=== PATIENT | female | born 1990 | race Caucasian/White ===

== ENCOUNTER 2022-03-20 13:20 | Inpatient (IN) ==
[2022-03-20] MEDS ORDERED: OXYTOCIN 30 UNITS/500 ML BAG IV PRN ×3 (13:31→23:10)
[2022-03-20] MEDS ORDERED: ceFAZolin 2000MG 2,000 MG/15 ML SYR IV ONE (14:00)
[2022-03-20 14:25] LABS: Hemoglobin 11.8 g/dL (12.0-16.0); Mean Corpuscular Hemoglobin 30.6 pg (25-34); Mean Corpuscular Hgb Conc 34.7 g/dL (32-36); Mean Corpuscular Volume 88.1 fL (80-100); Mean Platelet Volume 10.8 fL (7.4-10.4); Platelet Count 230 K/uL (130-400); RDW Coefficient of Variation 13.2 % (11.5-14.5); Red Blood Count 3.86 M/uL (4.2-5.4); White Blood Count 11.03 K/uL (4.8-10.8)
[2022-03-20] MEDS: LACTATED RINGER'S 1,000 ML IV PRN ×2 (15:33→18:25)
--- NOTE | 2022-03-20 15:44 | History & Physical Report ---
Date of Service March 20, 2022 Assessment & Plan (1) Supervision of normal intrauterine in primigravida: Plan: Admit to L&D. EFM/toco. Labs. Pitocin. Discussed allergy history - has h/o rash as a child for Augmentin. She believes she took amoxicillin a long time ago and did ok, however does not remember exactly. I therefore recommended to her that we avoid penicillin products, given that we do not know if she has actually tolerated a penicillin family a ntibiotic in the past or not. Rx ancef. Admission and Anticipated Discharge Date Admission Date: March 20, 2022 History of Present Illness Chief Complaint: SROM Primary Care Provider: Lorraine Lockett, 31yo @ 38 12/25, presents after clear fluid rupture of membranes around 11:00-11:30 today. No vaginal bleeding. + movement. No reg ctx. Grossly ruptured on office exam. with +GBS, Rh negative. Allergies Allergy/AdvReac Type Severity Reaction Status Date / Time amoxicillin [From Augmentin] Allergy Mild rash Verified 03/20/22 12:33 clavulanic acid Allergy Mild rash Verified 03/20/22 12:33 [From Augmentin] Home Medications Medication Instructions Recorded Confirmed Type prenat.vits,monalisa,zcn-pxvu-mbaub 1 tab PO DAILY 08/11/21 03/20/22 History ferrous sulfate 325 mg (65 mg 325 mg PO Q OTHER DAY 01/21/22 03/20/22 History iron) tablet,delayed release famotidine 10 mg tablet (Pepcid AC) 10 mg PO DAILY 02/17/22 03/20/22 History Lactobacills gasseri-Bifidobac 1 cap PO DAILY 03/20/22 03/20/22 History bifidum,longum 1.5 billion cell capsule ([employer]) calcium carbonate 500 mg calcium 1,000 mg PO Q6HWA PRN 03/20/22 03/20/22 History (1,250 mg) chewable tablet Patient History Surgical History S/P wisdom tooth extraction Family History Uncle Colorectal cancer Aunt Breast cancer Father Diabetes Hypertension Dyslipidemia Prostate cancer Mother Ovarian cancer Social History (Updated 03/20/22 @ 13:38 by Meaghan Figueroa RN) Smoking Status: Never smoker Hx Alcohol Use: No Hx Substance Use: No Preferred Language: Nepalese Communication Ability: Effective Visual Impairment: No Limitations Hearing Ability: Normal Picture Enlarger Required: No Beliefs That Will Affect Care: None marital status: marital status details: Jai (31) [phone] Current Living Situation: Spouse Current Living Situation Comment: lives with spouse, no pets. 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 Feels Safe at Home: Yes Safety Concerns: Feels Safe At This Time Gender Identity: Female Review of Systems All systems reviewed & are unremarkable except as noted in HPI & below Physical Exam Physical Exam: FHT Cat 1 toco occasional SVE 3/90/-2, soft/right. EFW 7-8 Constitutional: WD/WN, vitals as above Respiratory: normal respiratory effort, lungs clear to auscultation no respiratory distress Cardiovascular: Rate/Rhythm: regular rate and regular rhythm Gastrointestinal (Abdomen): Inspection/Auscultation: abdomen normal to inspection Percussion/Palpation: abdomen soft; abdomen nontender Gravid. No s/s chorio or abruption. Skin: no rashes, warm and dry Psychiatric: A+Ox3, euthymic affect Coding Level of Care Code None Diagnoses Supervision of normal intrauterine in primigravida Z34.00
[2022-03-20] MEDS ORDERED: ePHEDrine sulfate 50 MG/ML AMP ONE (18:01)
[2022-03-20] MEDS ORDERED: SODIUM CHLORIDE 0.9% INJ 10 ML VIAL ONE (18:01)
[2022-03-20] MEDS ORDERED: fentaNYL citrate 100 MCG/2 ML VIAL ONE (18:01)
[2022-03-20] MEDS ORDERED: BUPIVACAINE 0.25% 30 ML VIAL ONE (18:02)
[2022-03-20] MEDS ORDERED: fentaNYL 2MCG/ML ROPIVACAINE 1.25MG/ML 100 ML BAG EPI ONE (18:02)
[2022-03-20] MEDS ORDERED: PROMETHAZINE HCL 6.25 MG in SODIUM CHLORIDE 0.9% 50 ML IV PRN (18:21)
[2022-03-20] MEDS ORDERED: fentaNYL 2MCG/ML ROPIVACAINE 1.25MG/ML 100 ML BAG EPI PRN (18:21)
[2022-03-20] MEDS ORDERED: NALBUPHINE HCL INJ 10 MG/ML AMP IV PRN (18:21)
[2022-03-20] MEDS ORDERED: ePHEDrine sulfate 50 MG/ML AMP IV PRN (18:21)
[2022-03-20] MEDS ORDERED: NALOXONE HCL 0.4 MG/1 ML VIAL/CARP IV PRN (18:21)
[2022-03-20] MEDS ORDERED: ONDANSETRON INJ 2 MG/ML 2 ML VIAL IV PRN (18:21)
[2022-03-20] MEDS ORDERED: diphenhydrAMINE 50 MG/ML VIAL IV PRN (18:21)
[2022-03-20] MEDS ORDERED: NALOXONE HCL 1 MG in SODIUM CHLORIDE 0.9% 1000ML 1,000 ML IV PRN (18:21)
--- NOTE | 2022-03-20 18:26 | Anesthesiology Consultation ---
Date of Service March 20, 2022 Assessment & Plan (1) Encounter for pre-operative examination: Chart Review Chart Review: Patient NOT seen in Pre Admission Testing and Acceptable Risk for Labor Epidural Consults Requested none History Height/Weight Height: 5 ft 1 in Weight: 71.668 kg Allergies Allergy/AdvReac Type Severity Reaction Status Date / Time amoxicillin [From Augmentin] Allergy Mild rash Verified 03/20/22 12:33 clavulanic acid Allergy Mild rash Verified 03/20/22 12:33 [From Augmentin] Medications Home Medications Medication Instructions Recorded Confirmed Last Taken prenat.vits,monalsia,ios-lhyn-zzvpb 1 tab PO DAILY 08/11/21 03/20/22 03/20/22 07:00 ferrous sulfate 325 mg (65 mg 325 mg PO Q OTHER DAY 01/21/22 03/20/22 03/18/22 20:00 iron) tablet,delayed release famotidine 10 mg tablet (Pepcid AC) 10 mg PO DAILY 02/17/22 03/20/22 03/20/22 07:00 Lactobacills gasseri-Bifidobac 1 cap PO DAILY 03/20/22 03/20/22 03/20/22 07:00 bifidum,longum 1.5 billion cell capsule ([employer]) calcium carbonate 500 mg calcium 1,000 mg PO Q6HWA PRN 03/20/22 03/20/22 03/18/22 22:00 (1,250 mg) chewable tablet calcium carbonate 600 mg-vitamin 1 tab PO DAILY 03/20/22 03/20/22 03/20/22 07:00 D3 10 mcg (400 unit) tablet (Calcium 600 + D(3)) Active Medications Generic Name Dose Route Start Last Admin Trade Name Freq PRN Reason Stop Dose Admin Oxytocin 30 units in 500 mls @ 7 mls/hr 03/20/22 13:36 03/20/22 17:30 Pitocin IV 03/22/22 13:35 0.42 units/hr .Q24H PRN 7 mls/hr Labor Induction/Augmentation Titration Protocol 0.42 UNITS/HR Lactated Ringer's 1,000 mls @ 125 mls/hr 03/20/22 13:31 03/20/22 18:25 Lr IV 03/22/22 13:30 999 mls/hr .Q8H PRN Administration L&D Protocol Protocol Past Family History Family History Uncle Colorectal cancer Aunt Breast cancer Father Diabetes Hypertension Dyslipidemia Prostate cancer Mother Ovarian cancer Past Surgical History Surgical History S/P wisdom tooth extraction Past Anesthesia History No Hx of Anesthesia Complications and No Family Hx of Anesthesia Complications History of PONV No Hx of PONV and No Hx of Motion Sickness Social History Smoking Status: Never smoker Hx Alcohol Use: No Hx Substance Use: No substance use type: does not use Physical Exam Vital Signs Last Vital Signs Temp 37 C 03/20/22 16:44 Pulse 76 03/20/22 18:12 Resp 20 03/20/22 16:44 BP 125/89 03/20/22 18:12 Testing Laboratory Results 03/20/22 14:01
--- NOTE | 2022-03-20 19:47 | Labor Progress Brief Note ---
Date of Service March 20, 2022 Subjective Comfortable with epidural. FHT Cat 1 toco Q 2-3 min SVE 7/100/+1 Continue labor. Assessment & Plan Admission and Anticipated Discharge Date Admission Date: March 20, 2022 Results & Data ([facility]) Vital Signs (Past 12 Hours) Vital Signs Temp Pulse Resp BP Pulse Ox 03/20/22 19:41 84 99 03/20/22 19:40 82 116/63 03/20/22 19:36 84 100 03/20/22 19:31 92 H 99 03/20/22 19:26 89 100 03/20/22 19:23 83 116/61 03/20/22 19:21 73 100 03/20/22 19:16 77 99 03/20/22 19:11 99 H 99 03/20/22 19:08 79 118/67 03/20/22 19:06 84 99 03/20/22 19:03 77 116/67 03/20/22 19:01 94 H 99 03/20/22 18:56 73 99 03/20/22 18:53 79 117/66 03/20/22 18:51 83 123/72 99 03/20/22 18:49 89 126/76 03/20/22 18:47 81 118/77 03/20/22 18:46 84 99 03/20/22 18:45 85 126/72 03/20/22 18:43 84 134/83 03/20/22 18:41 85 151/86 H 99 03/20/22 18:38 79 128/73 03/20/22 18:36 84 99 03/20/22 18:31 94 H 99 03/20/22 18:12 76 125/89 03/20/22 17:58 73 154/66 H 03/20/22 17:57 76 145/78 H 03/20/22 17:42 81 156/80 H 03/20/22 17:27 75 139/86 03/20/22 17:12 77 125/78 03/20/22 16:56 77 116/78 03/20/22 16:44 37 C 20 03/20/22 16:41 78 128/79 03/20/22 16:26 78 130/78 Coding Level of Care Code None
[2022-03-20] MEDS ORDERED: LIDOCAINE 2%/EPINEPHRINE 1:200,000 20 ML SDV ONE (20:20)
[2022-03-20] MEDS ORDERED: ceFAZolin 1000MG 1,000 MG/7.5 ML SYR IV PRN (20:31)
--- NOTE | 2022-03-20 23:01 | Delivery Summary ---
Vaginal Delivery Summary Date of Service March 20, 2022 Vaginal Delivery Summary and 3rd Degree LAC Vaginal Delivery Summary: Pre-delivery diagnoses: 31yo @ 38 4/7, SROM, Rh negative, GBS+ Post-delivery diagnoses: same Procedure: spontaneous vaginal delivery, repair of 3rd degree perineal laceration Surgeon: Jasmin Rae DO Complications: none Findings: Viable female . Apgars: 9/9 . Weight pending, please see nursery records. Estimated blood loss: 300ml Description of delivery: The patient progressed to complete with epidural anesthesia. She then began to push. She spontaneously vaginally delivered a viable from the cephalic presentation. The head delivered in DEIRDRE position. The anterior and posterior shoulder delivered at once, followed by the body. The baby was placed on mother's abdomen and a spontaneous cry was heard. Delayed cord clamping was employed, and the cord was doubly clamped and cut. Cord blood was obtained. The placenta was delivered spontaneously intact with a 3-vessel cord. The uterus and vagina were swept of clots and debris. IV pitocin was given. The uterus became firm. The cervix, vagina, and perineum were inspected and a 3rd degree perineal laceration was noted and repaired. First, the anal sphincter muscle was identified and grasped with Allis clamps, then the fascial sheath was reapproximated with 4 [id number] sutures of 3-0 Chromic. The remaining laceration was repaired with 3-0 Vicryl in standard fashion. Excellent hemostasis was observed. The mother and baby are recovering in stable and good condition in the room. Sponge, needle and instrument counts were correct x 2. Jamsin Rae DO [facility] Vaginal Delivery Charge Vaginal Delivery Codes: 67412 global code for the antepartum, delivery, and post- Delivery Type Details: and 3rd Degree LAC
[2022-03-20] MEDS ORDERED: DIPHTHERIA/TETANUS/PERTUSSIS 0.5 ML SYR/VIAL IM ONE (23:10)
[2022-03-20] MEDS ORDERED: BENZOCAINE 20% AER SPR 82.5 GM CAN EXT PRN (23:10)
[2022-03-20] MEDS ORDERED: HYDROCORTISONE ACETATE 25 MG SUPP PR PRN (23:10)
[2022-03-20] MEDS ORDERED: oxyCODONE/ACETAMINOPHEN 5mg/325mg TAB PO PRN (23:10)
[2022-03-20] MEDS ORDERED: bisacodyL 10 MG SUPP PR PRN (23:10)
[2022-03-20] MEDS ORDERED: CALCIUM CARBONATE 500 MG CHEWABLE TAB PO PRN (23:15)
--- NOTE | 2022-03-21 00:31 | Anesthesia Procedure Note ---
Date of Service March 21, 2022 Anesthesia Post Epidural Note Vital Signs Vital Signs: Temp Pulse Resp BP Pulse Ox 37.2 C 85 18 137/68 97 03/20/22 20:38 03/21/22 00:23 03/20/22 22:55 03/21/22 00:23 03/20/22 22:56 Pain Intensity Abdomen: Pain Intensity: 0 Notes Mental Status: alert / awake / arousable and participated in evaluation Patient Amnestic to Procedure: No Nausea / Vomiting: adequately controlled Pain: adequately controlled Airway Patency, RR, SpO2: stable & adequate BP & HR: stable & adequate Hydration State: stable & adequate Neuraxial Anesthesia: was administered and sensory block is resolving Anesthetic Complications: no major complications apparent and Pt Satisfied with anesthetic care Epidural: Removed without complications and With tip intact
[2022-03-21] MEDS: IBUPROFEN 600 MG TAB PO PRN ×4 (02:55→20:03)
--- NOTE | 2022-03-21 06:50 | Obstetrical Progress Note ---
Date of Service March 21, 2022 Assessment & Plan (1) Encounter for care and examination after delivery: Plan: Patient is a 31-year-old a now G1, P1 female who delivered via normal spontaneous vaginal delivery at 38 and 4/7 weeks. -Continue routine care, keep today -GBS positive, treated with Ancef,A-, antibody negative, rubella immune -Patient requires RhoGAM as baby's blood type is A+ -Pain controlled with Tylenol and ibuprofen -Encouraged ambulation -Encourage breast-feeding -6-week follow-up with Dr. Rae Admission and Anticipated Discharge Date Admission Date: March 20, 2022 Supervising Physician Co-Signing Physician Notes Resident Physician Supervision Note: I was present with Dr. Flanagan during the history and exam. I discussed the case with the resident and agree with the findings and plan as documented in the note. Any exceptions or clarifications are listed here: PPD#1 doing well. Routine recovery. Documented By: Jasmin Rae, DO Subjective Patient is a 31-year-old a now G1, P1 female who delivered via normal spontaneous vaginal delivery at 38 and 4/7 weeks. was uncomplicated. Patient overall doing well. Patient pain is controlled at this time with ibuprofen and Tylenol but is a little crampy Patient was walking around the room upon my arrival. Patient urinating without difficulty. Eating and drinking without nausea or vomiting. Patient is breast-feeding without difficulty. Lochia moderate but improving. Patient otherwise denies fever, chills, chest pain, shortness of breath, UTI symptoms, or headache. Patient has no other complaints at this time. Patient aware she needs to receive RhoGAM. Review of Systems Review of Systems: All systems reviewed & are unremarkable except as noted in HPI & below Physical Exam Constitutional: WD/WN, vitals as above Eyes: + anicteric sclerae Neck: trachea midline, no thyromegaly Respiratory: normal respiratory effort, lungs clear to auscultation Cardiovascular: RRR, no murmur, no edema Gastrointestinal (Abdomen): normal bowel sounds, soft, nontender, no hepatosplenomegaly Skin: no rashes, warm and dry Neurologic: moves all extremities Psychiatric: A+Ox3, euthymic affect Genitourinary: Uterine fundus palpated at the level of the umbilicus, firm Results & Data ([facility]) Vital Signs (Past 12 Hours) Vital Signs Temp Pulse Pulse Resp BP BP Pulse Ox 03/21/22 03:15 36.6 C 72 16 120/75 03/21/22 00:40 36.7 C 20 03/21/22 00:38 106 H 124/69 03/21/22 00:23 85 137/68 03/21/22 00:10 100 H 18 123/79 03/20/22 23:53 96 H 120/68 03/20/22 23:40 18 03/20/22 23:38 96 H 114/61 03/20/22 23:25 20 03/20/22 23:23 110 H 133/83 03/20/22 23:10 20 03/20/22 23:08 102 H 118/57 L 03/20/22 22:56 97 H 97 03/20/22 22:55 18 03/20/22 22:53 100 H 123/62 03/20/22 22:51 97 H 97 03/20/22 22:46 100 H 97 03/20/22 22:41 97 H 97 03/20/22 22:40 20 03/20/22 22:38 107 H 127/67 03/20/22 22:36 104 H 97 03/20/22 22:31 110 H 97 03/20/22 22:26 112 H 97 03/20/22 22:21 121 H 97 03/20/22 22:16 173 H 98 03/20/22 22:11 131 H 98 03/20/22 22:10 139 H 93 03/20/22 22:09 127 H 139/83 03/20/22 22:06 123 H 99 03/20/22 22:01 110 H 99 03/20/22 22:00 20 03/20/22 21:56 128 H 99 03/20/22 21:55 141 H 133/71 03/20/22 21:51 154 H 100 03/20/22 21:46 111 H 99 03/20/22 21:41 108 H 99 03/20/22 21:40 100 H 132/88 03/20/22 21:36 86 99 03/20/22 21:31 90 99 03/20/22 21:30 20 03/20/22 21:26 84 100 03/20/22 21:23 86 141/80 H 03/20/22 21:21 88 99 03/20/22 21:16 85 99 03/20/22 21:11 93 H 99 03/20/22 21:08 95 H 131/85 03/20/22 21:06 97 H 100 03/20/22 21:01 87 99 03/20/22 20:56 96 H 100 03/20/22 20:54 83 140/70 03/20/22 20:51 78 99 03/20/22 20:46 83 100 03/20/22 20:41 98 H 98 03/20/22 20:38 37.2 C 81 20 128/70 03/20/22 20:36 81 98 03/20/22 20:31 83 100 03/20/22 20:26 79 100 03/20/22 20:21 95 H 98 03/20/22 20:16 88 99 03/20/22 20:11 86 100 03/20/22 20:09 93 H 117/71 03/20/22 20:06 91 H 100 03/20/22 20:01 97 H 100 03/20/22 19:56 101 H 100 03/20/22 19:54 94 H 110/65 03/20/22 19:51 95 H 98 03/20/22 19:46 85 100 03/20/22 19:41 84 99 03/20/22 19:40 82 116/63 03/20/22 19:36 84 100 03/20/22 19:31 92 H 99 03/20/22 19:26 89 100 03/20/22 19:23 83 116/61 03/20/22 19:21 73 100 03/20/22 19:16 77 99 03/20/22 19:11 99 H 99 03/20/22 19:08 79 118/67 03/20/22 19:06 84 99 03/20/22 19:03 77 116/67 03/20/22 19:01 94 H 99 03/20/22 18:56 73 99 03/20/22 18:53 79 117/66 03/20/22 18:51 83 123/72 99 03/20/22 18:49 89 126/76 03/20/22 18:47 81 118/77 03/20/22 18:46 84 99 03/20/22 18:45 85 126/72 03/20/22 18:43 84 134/83 07/01/22 18:41 85 151/86 H 99 03/20/22 18:38 79 128/73 03/20/22 18:36 84 99 03/20/22 18:31 94 H 99 03/20/22 18:12 76 125/89 03/20/22 17:58 73 154/66 H 03/20/22 17:57 76 145/78 H 03/20/22 17:42 81 156/80 H 03/20/22 17:27 75 139/86
[2022-03-21] MEDS: PRENATAL VITAMIN 1 TAB PO SCH (08:26)
[2022-03-21] MEDS: FAMOTIDINE 10 MG TABLET PO SCH (08:26)
[2022-03-21] MEDS: DOCUSATE SODIUM 100 MG CAP PO SCH ×2 (08:26→21:26)
[2022-03-21 09:12] LABS: Hematocrit (blood only) 32.5 % (37-47); Hemoglobin 11.2 g/dL (12.0-16.0)
[2022-03-21] MEDS: ACETAMINOPHEN 325 MG TAB PO PRN ×2 (16:11→21:26)
[2022-03-21] MEDS ORDERED: bisacodyL 5 MG TABEC PO SCH (20:00)
[2022-03-22] MEDS: IBUPROFEN 600 MG TAB PO PRN ×2 (01:24→07:43)
[2022-03-22] MEDS: ACETAMINOPHEN 325 MG TAB PO PRN ×2 (04:33→13:49)
[2022-03-22] MEDS: PRENATAL VITAMIN 1 TAB PO SCH (07:43)
[2022-03-22] MEDS: FAMOTIDINE 10 MG TABLET PO SCH (07:44)
[2022-03-22] MEDS: DOCUSATE SODIUM 100 MG CAP PO SCH (07:44)
--- NOTE | 2022-03-22 08:56 | Obstetrical Progress Note ---
Date of Service March 22, 2022 Assessment & Plan (1) Encounter for care and examination after delivery: meets criteria home Subjective Ambulation: ambulating normally Voiding: no voiding problems Passing Gas:: Yes Diet Tolerance:: regular diet Lochia:: Small Results [facility] Data [facility] Vital Signs (Past 12 Hours) Vital Signs Temp Pulse Resp BP Pulse Ox 03/22/22 07:51 98.1 F 82 18 148/90 H 100 03/21/22 23:17 97.7 F 94 H 18 132/87 97
== END 2022-03-22 18:07 | disposition home or self-care (01) | DRG 768 ==
LOC: OPB 13:20 → 4S1 13:22 → 4E1 03-21 02:55

== ENCOUNTER 2024-02-19 08:33 | Inpatient (IN) ==
[2024-02-19] MEDS: LACTATED RINGER'S 1,000 ML IV PRN (08:40)
[2024-02-19] MEDS ORDERED: LIDOCAINE 1% LOCAL 20 ML VIAL INFIL PRN (08:41)
[2024-02-19] MEDS: PENICILLIN GK 6 MU in DEXTROSE 5% 250 ML IV STA (08:55)
--- NOTE | 2024-02-19 08:59 | History & Physical Report ---
Date of Service February 19, 2024 Assessment & Plan (1) Encounter for supervision of normal in multigravida: Plan: Admit to L&D. EFM/toco. Labs. IV. Penicillin for GBS prophylaxis - discussed prior allergy history with patient, suspect this will be ok. She desires epidural - ok for this. History of Present Illness Chief Complaint: contractions Primary Care Provider: Lorraine Lockett, DO 33yo @ 39 02/24, came to L&D with contractions. GBS+ with h/o augmentin allergy as a child, has had amoxicillin during this with no adverse effect. Rh negative. Allergies Allergy/AdvReac Type Severity Reaction Status Date / Time clavulanic acid Allergy Mild rash Verified 02/16/24 09:31 [From Augmentin] Home Medications Medication Instructions Recorded Confirmed Type prenat.vits,monalisa,xhy-fhkt-oqtnf 1 tab PO DAILY 08/11/21 02/16/24 History Lactobacills gasseri-Bifidobac 1 cap PO DAILY 03/20/22 02/16/24 History bifidum,longum 1.5 billion cell capsule ([employer]) calcium carbonate 600 mg-vitamin 1 tab PO DAILY 03/20/22 02/16/24 History D3 10 mcg (400 unit) tablet (Calcium 600 + D(3)) Patient History Medical History (Updated 02/07/24 @ 10:13 by Marni Smith) History of chicken pox Encounter for pre-operative examination Surgical History S/P wisdom tooth extraction Family History Uncle Colorectal cancer Aunt Breast cancer Father Diabetes Hypertension Dyslipidemia Prostate cancer Mother Ovarian cancer Social History (Updated 07/07/23 @ 08:53 by April Foley) Smoking Status: Never smoker Second Hand Exposure: No; Do You Dip or Chew Tobacco: No; Tobacco Cessation Education Requested by Patient: No Hx Alcohol Use: No Hx Substance Use: No Preferred Language: Greek Communication Ability: Effective Visual Impairment: No Limitations Hearing Ability: Normal Clamp Carrier Operator Required: No Beliefs That Will Affect Care: None marital status: marital status details: Jai Hoffmann (33) [phone] Current Living Situation: Spouse Current Living Situation Comment: lives with spouse, daughter, no pets. current occupational status: employed current occupation: Dental Hygenist @ [employer] Other Information That Helps Us Care for You: No Feels Safe at Home: Yes Safety Concerns: Feels Safe At This Time Diet: regular Gender Identity: Female Assistive Devices: Glasses Review of Systems All systems reviewed & are unremarkable except as noted in HPI & below Physical Exam Physical Exam: FHT Cat 1 Lutz q 3-4 SVE 6-7/100/0 per RN Constitutional: WD/WN, vitals as above Respiratory: normal respiratory effort, lungs clear to auscultation no respiratory distress Cardiovascular: Rate/Rhythm: regular rate and regular rhythm Gastrointestinal (Abdomen): Inspection/Auscultation: abdomen normal to inspection Percussion/Palpation: abdomen soft; abdomen nontender Gravid. No s/s chorio or abruption. Skin: no rashes, warm and dry Psychiatric: A+Ox3, euthymic affect Results & Data Vital Signs (Past 12 Hours) Vital Signs Temp Pulse Resp BP 02/19/24 08:48 36.9 C 106 H 18 134/83 02/19/24 08:38 106 H 134/83 Coding Level of Care Code None Diagnoses Encounter for supervision of normal in multigravida Z34.80
[2024-02-19 09:12] LABS: Hematocrit (blood only) 32.3 % (37.0-47.0); Hemoglobin 11.1 g/dl (12.0-16.0); Mean Corpuscular Hgb Conc 34.4 g/dL (32.0-36.0); Mean Corpuscular Volume 84.3 fL (80.0-100.0); Mean Platelet Volume 10.7 fL (9.4-12.4); Platelet Count 228 K/uL (130-400); Red Blood Count 3.83 M/uL (4.20-5.40); White Blood Count 14.12 K/ul (4.8-10.8)
--- NOTE | 2024-02-19 09:36 | Anesthesiology Consultation ---
Date of Service February 19, 2024 Assessment & Plan Chart Review Chart Review: Acceptable Risk for Surgery and Patient NOT seen in Pre Admission Testing Consults Requested none ASA ASA2 Proposed Anesthesia Anesthesia Type: Labor Epidural and CSE History Height/Weight Height: 5 ft 1 in Weight: 68.946 kg Allergies Allergy/AdvReac Type Severity Reaction Status Date / Time clavulanic acid Allergy Mild rash Verified 02/16/24 09:31 [From Augmentin] Medications Home Medications Medication Instructions Recorded Confirmed Last Taken prenat.vits,monalisa,mff-epjv-povpf 1 tab PO DAILY 08/11/21 02/16/24 03/20/22 07:00 Lactobacills gasseri-Bifidobac 1 cap PO DAILY 03/20/22 02/16/24 03/20/22 07:00 bifidum,longum 1.5 billion cell capsule ([employer]) calcium carbonate 600 mg-vitamin 1 tab PO DAILY 03/20/22 02/16/24 03/20/22 07:00 D3 10 mcg (400 unit) tablet (Calcium 600 + D(3)) Active Medications Generic Name Dose Route Start Last Admin Trade Name Freq PRN Reason Stop Dose Admin Penicillin G Potassium 6 mu/ 262 mls @ 250 mls/hr 02/19/24 08:42 02/19/24 08:55 Dextrose IV 02/19/24 09:44 250 mls/hr NOW STA Administration Lactated Ringer's 1,000 mls @ 125 mls/hr 02/19/24 08:41 02/19/24 08:40 Lr IV 02/21/24 08:40 999 mls/hr .Q8H PRN Administration L&D Protocol Protocol Past Medical History Medical History History of chicken pox Encounter for pre-operative examination anemia Exercise / Class Metabolic Activity II 4-5 Yardwork/Stairs/Walk up hill Past Family History Family History Uncle Colorectal cancer Aunt Breast cancer Father Diabetes Hypertension Dyslipidemia Prostate cancer Mother Ovarian cancer Past Surgical History Surgical History S/P wisdom tooth extraction Past Anesthesia History No Hx of Anesthesia Complications and No Family Hx of Anesthesia Complications History of PONV No Hx of PONV and No Hx of Motion Sickness Social History Smoking Status: Never smoker Do You Dip or Chew Tobacco: No Hx Alcohol Use: No Hx Substance Use: No substance use type: does not use Physical Exam Vital Signs Last Vital Signs Temp 36.9 C 02/19/24 08:48 Pulse 106 H 02/19/24 08:48 Resp 18 02/19/24 08:48 BP 134/83 02/19/24 08:48 Testing Laboratory Results 02/19/24 08:54
[2024-02-19] MEDS ORDERED: NALOXONE HCL 1 MG in SODIUM CHLORIDE 0.9% 1,000 ML IV PRN (10:08)
[2024-02-19] MEDS ORDERED: fentANYL 2 MCG/ML BUPIVacaine 0.125%-NSS 100ML BAG EPI PRN (10:08)
[2024-02-19] MEDS ORDERED: NALOXONE HCL 0.4 MG/1 ML VIAL/CARP IV PRN (10:08)
[2024-02-19] MEDS ORDERED: diphenhydrAMINE 50 MG/ML VIAL IV PRN (10:08)
[2024-02-19] MEDS ORDERED: ePHEDrine sulfate 50 MG/ML AMP IV PRN (10:08)
[2024-02-19] MEDS: fentaNYL citrate PF 100 MCG/2 ML VIAL ONE (10:08)
[2024-02-19] MEDS ORDERED: NALBUPHINE HCL 5 MG in SYRINGE 0 ML IV PRN (10:08)
[2024-02-19] MEDS ORDERED: fentaNYL citrate PF 100 MCG/2 ML VIAL EPI PRN (10:08)
[2024-02-19] MEDS ORDERED: fentaNYL citrate PF 100 MCG/2 ML VIAL EPI STA (10:08)
[2024-02-19] MEDS ORDERED: LIDOCAINE 2%/EPINEPHRINE 1:200,000 20 ML PF EPI STA (10:08)
[2024-02-19] MEDS ORDERED: PROMETHAZINE HCL 6.25 MG in SODIUM CHLORIDE 0.9% 50 ML IV PRN (10:08)
[2024-02-19] MEDS ORDERED: SODIUM CHLORIDE 0.9% PF INJ 10 ML VIAL EPI STA (10:08)
[2024-02-19] MEDS ORDERED: BUPIVACAINE 0.25% PF 30 ML VIAL EPI PRN (10:08)
[2024-02-19] MEDS ORDERED: SODIUM CHLORIDE 0.9% PF INJ 10 ML VIAL EPI PRN (10:08)
[2024-02-19] MEDS ORDERED: ROPIVACAINE 0.5% PF 5 MG/ML 20 ML VIAL EPI PRN (10:08)
[2024-02-19] MEDS: LIDOCAINE 2%/EPINEPHRINE 1:200,000 20 ML PF ONE (10:08)
[2024-02-19] MEDS ORDERED: BUPIVACAINE 0.25% PF 30 ML VIAL EPI STA (10:08)
[2024-02-19] MEDS ORDERED: LIDOCAINE 2% MPF LOCAL 5 ML VIAL EPI PRN (10:08)
[2024-02-19] MEDS ORDERED: ONDANSETRON INJ 2 MG/ML 2 ML VIAL IV PRN (10:08)
[2024-02-19] MEDS: BUPIVACAINE 0.25% PF 30 ML VIAL ONE (10:08)
[2024-02-19] MEDS: SODIUM CHLORIDE 0.9% PF INJ 10 ML VIAL ONE (10:09)
[2024-02-19] MEDS: fentANYL 2 MCG/ML BUPIVacaine 0.125%-NSS 100ML BAG ONE (10:10)
[2024-02-19] MEDS: ePHEDrine sulfate 50 MG/ML AMP ONE (10:19)
[2024-02-19] MEDS: PENICILLIN GK 3 MU in DEXTROSE 5% 100 ML IV PRN (12:20)
[2024-02-19] MEDS: OXYTOCIN 30 UNITS/NSS 30 UNITS/500 ML BAG IV PRN (13:46)
--- NOTE | 2024-02-19 14:17 | Delivery Summary ---
Vaginal Delivery Summary Date of Service February 19, 2024 Vaginal Delivery Summary and 3rd Degree LAC Vaginal Delivery Summary: Pre-delivery diagnoses: 33yo @ 39 6/7, spontaneous labor, Rh negative, GBS+ Post-delivery diagnoses: same, 3rd degree perineal laceration Procedure: spontaneous vaginal delivery, repair of 3rd degree perineal laceration Surgeon: Jasmin Rae DO Complications: none Findings: Viable male . Apgars: 8/8 . Weight pending, please see nursery records. QBL: 84cc Description of delivery: The patient progressed to complete with epidural anesthesia. She then began to push. She spontaneously vaginally delivered a viable from the cephalic presentation. The head delivered in HARESH position. No nuchal. The anterior shoulder delivered, followed by the posterior shoulder, followed by the body. The baby was placed on mother's abdomen and a spontaneous cry was heard. Delayed cord clamping was employed, and the cord was doubly clamped and cut. Cord blood was obtained. The placenta was delivered spontaneously intact with a 3-vessel cord. The uterus and vagina were swept of clots and debris. IV pitocin was given. The uterus became firm. The cervix, vagina, and perineum were inspected. A 3rd degree perineal laceration was identified - no rectal mucosal involvement. Both anal sphincter edges were grasped with Allis clamps, brought together, and reapproximated with 3-0 Chromic [id number] sutures. The remaining laceration was repaired in standard fashion with 3-0 Vicryl. Rectal exam shows no suture in rectum. Excellent hemostasis was observed. The mother and baby are recovering in stable and good condition in the room. Sponge, needle and instrument counts were correct x 2. Jasmin Rae DO [facility] Vaginal Delivery Charge Vaginal Delivery Codes: 00750 global code for the antepartum, delivery, and post- Delivery Type Details: and 3rd Degree LAC
[2024-02-19] MEDS ORDERED: oxyCODONE/ACETAMINOPHEN 5mg/325mg TAB PO PRN (14:32)
[2024-02-19] MEDS ORDERED: ACETAMINOPHEN 325 MG TAB PO PRN (14:32)
[2024-02-19] MEDS ORDERED: DIPHTHER/TETAN/PERTUS Vaccine (Tdap, Adol/Adult) 0.5mL IM ONE (14:32)
[2024-02-19] MEDS ORDERED: OXYTOCIN 30 UNITS/NSS 30 UNITS/500 ML BAG IV PRN (14:32)
[2024-02-19] MEDS ORDERED: bisacodyL 10 MG SUPP PR PRN (14:32)
[2024-02-19] MEDS ORDERED: HYDROCORTISONE ACETATE 25 MG SUPP PR PRN (14:32)
--- NOTE | 2024-02-19 14:49 | Anesthesia Procedure Note ---
Date of Service February 19, 2024 Anesthesia Post Epidural Note Vital Signs Vital Signs: Temp Pulse Resp BP Pulse Ox 37.1 C 95 H 18 121/61 100 02/19/24 14:10 02/19/24 14:28 02/19/24 14:40 02/19/24 14:28 02/19/24 13:43 Notes Mental Status: alert / awake / arousable Nausea / Vomiting: adequately controlled Pain: adequately controlled Airway Patency, RR, SpO2: stable & adequate BP & HR: stable & adequate Hydration State: stable & adequate Neuraxial Anesthesia: was administered and sensory block is resolving Anesthetic Complications: no major complications apparent Epidural: Removed without complications and With tip intact
[2024-02-19] MEDS: IBUPROFEN 600 MG TAB PO PRN (14:57)
[2024-02-19] MEDS: BENZOCAINE 20% SPRY 85 APPLN/85 GM CAN EXT PRN (14:58)
[2024-02-19] MEDS: DOCUSATE SODIUM 100 MG CAP PO SCH (20:43)
[2024-02-20 06:53] LABS: Hemoglobin 10.6 g/dl (12.0-16.0)
--- NOTE | 2024-02-20 07:44 | Obstetrical Progress Note ---
Date of Service February 20, 2024 Assessment & Plan (1) Encounter for care and examination after delivery: PPD#1 doing well. No concerns. . Desires DC home today - reviewed instructions, followup 6w PP. Subjective Ambulation: ambulating normally Voiding: no voiding problems Diet Tolerance:: regular diet Lochia:: Moderate Review of Systems All systems reviewed & are unremarkable except as noted in HPI & below Physical Exam Constitutional WD/WN, vitals as above no acute distress Respiratory normal respiratory effort Cardiovascular Rate/Rhythm: regular rate and regular rhythm Gastrointestinal (Abdomen) Inspection/Auscultation: abdomen normal to inspection; abdomen not distended Percussion/Palpation: abdomen soft Genitourinary OB Exam Abdomen: + fundal height Fundus: + firm; not tender Results & Data Vital Signs (Past 12 Hours) Vital Signs Temp Pulse Resp BP Pulse Ox O2 Del Method 02/20/24 04:21 36.6 C 88 18 120/83 98 Room Air 02/19/24 22:57 36.6 C 65 18 119/85 98 Room Air 02/19/24 20:05 36.8 C 83 18 131/81 Room Air
[2024-02-20] MEDS: PRENATAL VITAMIN 1 TAB PO SCH (08:36)
[2024-02-20] MEDS ORDERED: bisacodyL 5 MG TABEC PO SCH (20:00)
== END 2024-02-20 16:20 | disposition home or self-care (01) | DRG 768 ==
LOC: OPB 08:33 → 4S1 08:36 → 4E2 16:19